=== PATIENT | female | born 1960 | race Caucasian/White ===

== ENCOUNTER 2021-11-10 01:26 | Emergency (ER) | payer OTHER ==
[~2021-11-10 01:26] MED LIST: NORCO 5-325 TA1 EACH PO; PHENERGAN6.25 MG/5 PO; TOPROL XL 25MG25 MG PO
[2021-11-10 02:04] LABS: BASOPHIL 0.7 % (0-2); HCT 44.8 % (37.0-47.0); HGB 14.6 g/dl (12.5-16.0); LYMPHOCYTE 31.5 % (15-48); MCH 30.4 pg (25.0-31.0); MCHC 32.6 g/dL (32.0-36.0); MCV 93.1 fL (78.0-100.0); MONOCYTE 10.9 % (0-12); MPV 11.6 fL (6.0-9.5); NEUTROPHIL 54.6 % (41-80); NRBC 0; PLT 230 K/uL (150-400); RBC 4.81 M/uL (4.20-5.40); RDW 13.3 % (11.5-14.0); WBC 11.4 K/uL (4.0-10.5)
[2021-11-10 02:19] LABS: ALBUMIN 3.8 g/dL (3.4-5.0); BILIRUBIN - TOTAL 0.2 mg/dL (0.2-1.0); BUN/CREAT RATIO (CALC) 25.5 RATIO; CREATININE 0.55 mg/dL (0.51-0.95); GLOBULIN (CALCULATION) 4.2 g/dL; POTASSIUM 3.1 mmol/L (3.5-5.1)
--- NOTE | 2021-11-10 15:20 | NUR ---
11/10/21 A referral was received from the ED stating patient has "insurance issues". Patient was already discharged from the ED. - Ms. Marrero was reached by telephone. She reports to have spoken with the [employer]. - Ms. Marrero workd. However, she does not have health insurance. She has a PCP at Dr. Molina's office. - Ms. Marrero was educated to the [facility].
== END 2021-11-10 05:35 | disposition home or self-care (01) ==
LOC: FER 01:26
PROVIDERS: Emergency Medicine
DX: R07.89 Other chest pain (principal); F17.200 Nicotine dependence, unspecified, uncomplicated; Z88.1 Allergy status to other antibiotic agents; Z91.018 Allergy to other foods
CPT/HCPCS: 36415; 71045; 71275; 80053; 84484; 85025; 85379; 93005; J1885; J7030; Q9967